=== PATIENT | male | born 1990 | race Caucasian/White ===

== ENCOUNTER 2020-08-09 03:31 | Emergency (ER) | payer MEDICAID ==
[~2020-08-09] VITALS: Ht 170.2 cm; Wt 75.0 kg
[2020-08-09 03:34] VITALS: BP 146/89
== END 2020-08-09 04:00 | disposition home or self-care (01) ==
LOC: ER 03:45
DX: Z02.89 Encounter for other administrative examinations (principal); Z20.828 Contact with and (suspected) exposure to other viral communicable diseases; Z87.828 Personal history of other (healed) physical injury and trauma
CPT/HCPCS: 99283